=== PATIENT | male | born 1945 | race Caucasian/White ===

== ENCOUNTER 2016-09-18 16:57 | Inpatient (IN) | payer MEDICARE, OTHER ==
[~2016-09-18] VITALS: Ht 185.4 cm; Wt 107.1 kg
[2016-09-18] MEDS ORDERED: IV NORMAL SALINE 1000ML BAG 1,000 ML IV ONE (17:30)
--- NOTE | 2016-09-18 17:33 | PHYS DOC ---
Adult General Chief Complaint Chief Complaint: ABDOMINAL PAIN HPI HPI Patient is a 70 year old M who presents with right lower quadrant pain that started this morning. Patient had nausea without vomiting. Patient had subjective fevers throughout the day. Patient went to his family doctor Radha who sent him to the emergency room to rule out acute appendicitis. Patient denies any previous abdominal surgeries. Patient denies any chest pain or shortness of breath. Patient has no other complaints. Pertinent exam findings: Positive tenderness palpation right lower quadrant with rebound tenderness ED course: Patient is seen and evaluated upon arrival to emergency room CBC, CMP, lipase, CT scan abdomen and pelvis were ordered patient declined pain medicine at this time 1850: Radiology called patient has acute appendicitis 185: Patient updated on the CT findings and plan to admit and get a surgery 1899: Surgery paged 1909: Discussed CC/HP/PMH with Dr. Vanegas and recommends Levaquin and Flagyl and admitted to medicine was that they do surgery tomorrow 1913: Paged Dr. Núñez 1924: Discussed CC/HP/PMH with Dr. Núñez and recommends admit [] Pertinent results: CT scan shows acute appendicitis Labwork unremarkable white count normal MDM: After reviewing the chart, CC/HPI/PMH, physical exam, [lab results], [ radiological results], the patient has acute appendicitis and will be admitted to the hospital for surgery in the morning. Patient will be started on Levaquin and Flagyl. Review of Systems Review of Systems GEN: Denies fevers, chills, sweats HEENT: Denies blurred vision, sore throat CV: Denies chest pain RESP: Denies shortness of air, cough GI: Abdominal pain NEURO: Denies confusion, dizziness MSK: Denies weakness, joint pain/swelling Current Medications Current Medications Current Medications Medications (Trade) Dose Ordered Sig/Albert Start Time Stop Time Status Last Admin Dose Admin Iohexol (Omnipaque 300 Mg/ml) 75 ml 1X ONCE 09/18/16 17:45 09/18/16 17:46 DC 09/18/16 18:35 75 ML Levofloxacin/ Dextrose 150 ml @ 100 mls/hr 1X ONCE 09/18/16 19:30 09/18/16 20:59 Metronidazole 100 ml @ 100 mls/hr 1X ONCE 09/18/16 20:00 09/18/16 20:59 09/18/16 19:34 100 MLS/HR Sodium Chloride 1,000 ml @ 1,000 mls/hr 1X ONCE 09/18/16 17:30 09/18/16 18:29 DC 09/18/16 17:50 1,000 MLS/HR Allergies Allergies Allergies Coded Allergies Type Severity Reaction Last Updated Verified Penicillins Allergy Severe Anaphylaxis 09/18/16 Yes codeine Allergy Mild NAUSEA 09/18/16 Yes Physical Exam Physical Exam GEN.: No apparent distress. Alert and oriented. HEENT: Head is normocephalic, atraumatic NECK: Supple. LUNGS: CTAB. HEART: RRR, S1, S2 present. Peripheral pulses intact ABDOMEN: Soft, positive tenderness palpation right lower quadrant with rebound tenderness. Positive bowel sounds. EXTREMITIES: Without any cyanosis. NEUROLOGIC: Normal speech, normal tone PSYCHIATRIC: Normal affect, normal mood. SKIN: No ulcerations Current Patient Data Vital Signs Vital Signs Date Time Temp Pulse Resp B/P (MAP) Pulse Ox O2 Delivery O2 Flow Rate FiO2 09/18/16 19:15 75 16 133/79 (97) 94 Room Air 09/18/16 17:29 98.4 98.4 Lab Values Laboratory Tests Test 09/18/16 17:55 White Blood Count 9.2 x10^3/uL (4.0-11.0) Red Blood Count 5.10 x10^6/uL (4.30-5.70) Hemoglobin 15.2 g/dL (13.0-17.5) Hematocrit 46.2 % (39.0-53.0) Mean Corpuscular Volume 91 fL (79-100) Mean Corpuscular Hemoglobin 30 pg (25-35) Mean Corpuscular Hemoglobin Concent 33 g/dL (31-37) Red Cell Distribution Width 16.1 % (11.5-14.5) H Platelet Count 183 x10^3/uL (140-400) Neutrophils (%) (Auto) 67 % (31-73) Lymphocytes (%) (Auto) 21 % (24-48) L Monocytes (%) (Auto) 10 % (0-9) H Eosinophils (%) (Auto) 2 % (0-3) Basophils (%) (Auto) 0 % (0-3) Neutrophils # (Auto) 6.2 x10^3uL (1.8-7.7) Lymphocytes # (Auto) 2.0 x10^3/uL (1.0-4.8) Monocytes # (Auto) 0.9 x10^3/uL (0.0-1.1) Eosinophils # (Auto) 0.2 x10^3/uL (0.0-0.7) Basophils # (Auto) 0.0 x10^3/uL (0.0-0.2) Sodium Level 142 mmol/L (136-145) Potassium Level 4.2 mmol/L (3.5-5.1) Chloride Level 102 mmol/L (98-107) Carbon Dioxide Level 31 mmol/L (21-32) Anion Gap 9 (6-14) Blood Urea Nitrogen 14 mg/dL (8-26) Creatinine 1.3 mg/dL (0.7-1.3) Estimated GFR (Cockcroft-Gault) 54.7 BUN/Creatinine Ratio 11 (6-20) Glucose Level 113 mg/dL (70-99) H Calcium Level 9.3 mg/dL (8.5-10.1) Total Bilirubin 1.0 mg/dL (0.2-1.0) Aspartate Amino Transferase (AST) 16 U/L (15-37) Alanine Aminotransferase (ALT) 23 U/L (16-63) Alkaline Phosphatase 57 U/L (46-116) Total Protein 7.9 g/dL (6.4-8.2) Albumin 3.9 g/dL (3.4-5.0) Albumin/Globulin Ratio 1.0 (1.0-1.7) Lipase 115 U/L (73-393) Laboratory Tests 09/18/16 17:55 Laboratory Tests 09/18/16 17:55 EKG EKG [] Radiology/Procedures Radiology/Procedures CT scan shows acute appendicitis [] Course & Med Decision Making Course & Med Decision Making Pertinent Labs and Imaging studies reviewed. (See chart for details) [] Dragon Disclaimer Dragon Disclaimer This electronic medical record was generated, in whole or in part, using a voice recognition dictation system. Departure Departure Impression: Primary Impression: Appendicitis, acute Disposition: ADMITTED INPATIENT Condition: STABLE Referrals: TERRANCE AGARWAL MD (PCP) Problem Qualifiers Primary Impression: Appendicitis, acute Acute appendicitis type: with localized peritonitis Qualified Codes: K35.3 - Acute appendicitis with localized peritonitis SPIVEY,VALERIE S DO Sep 18, 2016 17:33
[2016-09-18] MEDS ORDERED: IOHEXOL 300 MG/ML 75 ML VIAL IV ONE (17:45)
[2016-09-18 18:05] LABS: BASO % 0 % (0-3); EOS % 2 % (0-3); HEMATOCRIT 46.2 % (39.0-53.0); HEMOGLOBIN 15.2 g/dL (13.0-17.5); LYMPH % 21 % (24-48); MEAN CORPUSCULAR HEMOGLOBIN 30 pg (25-35); MEAN CORPUSCULAR HGB CONC 33 g/dL (31-37); MEAN CORPUSCULAR VOLUME 91 fL (79-100); MONO % 10 % (0-9); NEUT % 67 % (31-73); PLATELET COUNT 183 x10^3/uL (140-400); RED CELL DISTRIBUTION WIDTH 16.1 % (11.5-14.5); WHITE BLOOD COUNT 9.2 x10^3/uL (4.0-11.0)
[2016-09-18 18:23] LABS: CALCIUM 9.3 mg/dL (8.5-10.1); CREATININE 1.3 mg/dL (0.7-1.3); GFR 54.7; POTASSIUM 4.2 mmol/L (3.5-5.1)
[2016-09-18 18:27] LABS: ALBUMIN 3.9 g/dL (3.4-5.0); TOTAL PROTEIN 7.9 g/dL (6.4-8.2)
--- NOTE | 2016-09-18 19:01 | RAD ---
Exam performed: CT scan of the abdomen and pelvis with contrast Clinical Indication: Severe right lower pain since this morning Date of Service: 09/18/2016 no priors Technique: Contiguous helical acquisitions are obtained from the lung bases to the pelvis during intravenous administration of [60 cc of Omnipaque 300]. Sagittal and coronal reformatted images were obtained and reviewed. CT abdomen findings: Appendix is enlarged and measures 12.6 mm with adjacent inflammatory changes consistent with acute appendicitis. No microperforation or abscess formation is seen. The lung bases demonstrate linear bibasilar atelectasis. The visualized heart is normal The liver, spleen ,gall bladder and pancreas appears unremarkable. Both adrenal glands and bilateral kidneys appear normal with symmetric excretion of contrast via both kidneys. Several nonobstructing bilateral renal calculi are seen. Small approximately 1 cm left inferior renal pole cyst The small bowel loops appear nondilated and unremarkable. There is no retroperitoneal lymphadenopathy or mass lesions. No bowel related inflammatory stranding is noted. CT pelvis findings: The pelvic bowel loops are nondilated and unremarkable. Sigmoid diverticulosis without acute diverticulitis. Prostatomegaly. Seminal vesicles and rectum appear normal. The urinary bladder is partially decompressed, however normal. Interrogation of bone windows demonstrates spondylotic changes and multilevel disc degenerative changes. Sagittal and coronal reformatted images were obtained and reviewed which demonstrate no additional findings. Impression abdomen and pelvis : 1. Findings consistent with acute appendicitis. No microperforation or abscess formation seen. 2. Nonobstructing bilateral renal calculi. The critical results were given to Dr. Licona in the ER soon after completion of the study at 6:45 PM PQRS Compliance Statement: One or more of the following individualized dose reduction techniques were utilized for this examination: 1. Automated exposure control 2. Adjustment of the mA and/or kV according to patient size 3. Use of iterative reconstruction technique Electronically signed by: Doreen Eisenberg MD (09/18/2016 6:57 PM)
[2016-09-18] MEDS ORDERED: ONDANSETRON PF 4 MG/2 ML VIAL. IV PRN (19:45)
[2016-09-18] MEDS ORDERED: MORPHINE SULFATE 4 MG/ML DISP.SYRIN. IV PRN (19:45)
[2016-09-18 21:00] VITALS: BP 129/63
[2016-09-18] MEDS: IV NORMAL SALINE 1000ML BAG 1,000 ML IV SCH (21:00)
[2016-09-18 23:13] VITALS: BP 129/63
[2016-09-19] VITALS (8 sets, daily range): BP systolic 106–126; BP diastolic 52–64
[2016-09-19 04:02] LABS: BASO # 0.1 x10^3/uL (0.0-0.2); BASO % 1 % (0-3); EOS % 3 % (0-3); HEMATOCRIT 43.2 % (39.0-53.0); HEMOGLOBIN 14.3 g/dL (13.0-17.5); LYMPH # 1.7 x10^3/uL (1.0-4.8); LYMPH % 24 % (24-48); MEAN CORPUSCULAR HEMOGLOBIN 30 pg (25-35); MEAN CORPUSCULAR HGB CONC 33 g/dL (31-37); MEAN CORPUSCULAR VOLUME 90 fL (79-100); MONO % 12 % (0-9); NEUT % 61 % (31-73); PLATELET COUNT 175 x10^3/uL (140-400); RED BLOOD COUNT 4.78 x10^6/uL (4.30-5.70); RED CELL DISTRIBUTION WIDTH 15.7 % (11.5-14.5); WHITE BLOOD COUNT 7.1 x10^3/uL (4.0-11.0)
[2016-09-19 04:15] LABS: CALCIUM 8.8 mg/dL (8.5-10.1); CREATININE 1.2 mg/dL (0.7-1.3)
[2016-09-19] MEDS: IV RINGERS,LACTATED 1000ML 1,000 ML IV SCH ×2 (06:05→10:37)
[2016-09-19] MEDS ORDERED: PROCHLORPERAZINE 10 MG/2 ML VIAL. IV PRN (06:15)
[2016-09-19] MEDS ORDERED: LIDOCAINE 1% 1 ML SYRINGE. ID PRN (06:15)
[2016-09-19] MEDS ORDERED: fentaNYL PF VIAL 100 MCG/2 ML VIAL IV PRN ×2 (06:15)
[2016-09-19] MEDS ORDERED: ONDANSETRON PF 4 MG/2 ML VIAL. IV PRN (06:15)
[2016-09-19] MEDS: IV NORMAL SALINE 1000ML BAG 1,000 ML IV SCH ×3 (06:27→12:30)
[2016-09-19] MEDS ORDERED: LEVO112T4 PO (07:12)
[2016-09-19] MEDS ORDERED: MONT10TA9 PO (07:12)
[2016-09-19] MEDS ORDERED: TAMS0.4C2 PO (07:12)
[2016-09-19] MEDS ORDERED: TIOT18CA IH (07:12)
[2016-09-19] MEDS ORDERED: HYDR12.58 PO (07:12)
[2016-09-19] MEDS ORDERED: PROVENTIL HFA6.7 GM IH (07:12)
[2016-09-19] MEDS ORDERED: LISI-334 PO (07:12)
[2016-09-19] MEDS ORDERED: MIDAZOLAM HCL/PF 2 MG/2 ML VIAL. ONE (09:44)
[2016-09-19] MEDS ORDERED: ONDANSETRON PF 4 MG/2 ML VIAL. ONE (09:44)
[2016-09-19] MEDS ORDERED: LIDOCAINE 2% PF Vial for OR 5 ML VIAL. ONE (09:44)
[2016-09-19] MEDS ORDERED: fentaNYL PF VIAL 100 MCG/2 ML VIAL ONE (09:44)
[2016-09-19] MEDS ORDERED: DEXAMETHASONE SOD PHOS 20 MG/5 ML VIAL. ONE (09:44)
[2016-09-19] MEDS ORDERED: ROCURONIUM 50 MG/5 ML VIAL. ONE (09:44)
[2016-09-19] MEDS ORDERED: PROPOFOL 20 ML IV ONE ×2 (09:44→11:49)
--- NOTE | 2016-09-19 10:26 | PDOC ---
Provider Note Provider Note #[id number]--wrlriie dictated ANDREW VILLALTA MD Sep 19, 2016 10:26
[2016-09-19] MEDS ORDERED: BUPIVAC MPF-EPI 0.5%-1:200000 30 ML VIAL. ONE (10:38)
[2016-09-19] MEDS ORDERED: SURGICEL HEMOSTAT 4X8 EACH. ONE (10:38)
[2016-09-19] MEDS ORDERED: SEVOFLURANE 61 TO 120 MINUTES. IH ONE (11:50)
--- NOTE | 2016-09-19 11:55 | PDOC ---
BRIEF OPERATIVE NOTE Pre-Op Diagnosis #[id number] appendicitis lap appy geta ebl 25 ivf 600 sari well to rr stable. d/w post op regarding his abrupt sliding/position change intra- operatively. anesthesia to monitor pt post op in rr. ANDREW VILLALTA MD Sep 19, 2016 11:55
--- NOTE | 2016-09-19 12:22 | HP ---
ADMIT DATE: 09/18/2016 CHIEF COMPLAINT: Abdominal pain. HISTORY OF PRESENT ILLNESS: The patient is a pleasant 70-year-old male who presents with abdominal pain. We did a CAT scan, he has appendicitis. He rates his symptoms at 7/10. He has associated nausea. The patient has now been admitted. We are awaiting surgery today. PAST MEDICAL HISTORY: Asthma, hypothyroidism, hypertension, BPH, and possible COPD. ALLERGIES: PENICILLIN AND CODEINE. FAMILY HISTORY: Coronary artery disease. SOCIAL HISTORY: I believe he quit smoking, no drinking or drugs use. He is . MEDICATIONS: Reviewed, please refer to the MRAD. REVIEW OF SYSTEMS: GENERAL: No history of weight change, weakness or fevers. SKIN: No bruising, hair changes or rashes. EYES: No blurred, double or loss of vision. NOSE AND THROAT: No history of nosebleeds, hoarseness or sore throat. HEART: No history of palpitations, chest pain or shortness of breath on exertion. LUNGS: Denies cough, hemoptysis, wheezing or shortness of breath. GASTROINTESTINAL: He complains of abdominal pain. GENITOURINARY: No history of frequency, urgency, hesitancy or nocturia. NEUROLOGIC: Denies history of numbness, tingling, tremor or weakness. PSYCHIATRIC: No history of panic, anxiety or depression. ENDOCRINE: No history of heat or cold intolerance, polyuria or polydipsia. EXTREMITIES: Denies muscle weakness, joint pain, pain on walking or stiffness. PHYSICAL EXAMINATION: VITAL SIGNS: Temperature afebrile, pulse 70, respirations 18, blood pressure 133/78. GENERAL: He is alert, cooperative, complaining of abdominal pain. HEART: Normal S1, S2. LUNGS: Clear. ABDOMEN: Soft. Decreased bowel sounds, tender at McBurney's point. ENDOCRINE: No thyromegaly. LYMPHATICS: No cervical nodes. HEMATOPOIETIC: No bruising. LABORATORY DATA: White count 9, hemoglobin 15, and platelets 183. Electrolytes were essentially normal. IMAGING: CT of the abdomen shown probable appendicitis. ASSESSMENT AND PLAN: Acute appendicitis. The patient has been admitted, given IV antibiotics, fluids and pain medications. We have consulted General Surgery. He is going to surgery this afternoon. RAVI MEZA DO DR: DARCY/dimas JOB#: [id number] / [id number]
--- NOTE | 2016-09-19 12:59 | OP ---
DATE OF SURGERY: 09/19/2016 PREOPERATIVE DIAGNOSIS: Acute appendicitis. POSTOPERATIVE DIAGNOSIS: Acute appendicitis. PROCEDURE: Laparoscopic appendectomy. SURGEON: Andrew Villalta M.D. ANESTHESIA: General. ESTIMATED BLOOD LOSS: 25 mL. IV FLUIDS: 600 mL. INDICATIONS: The patient is a 70-year-old male who presents with acute appendicitis. He had nonperforated and nongangrenous appendicitis. DESCRIPTION OF PROCEDURE: After informed consent was obtained, the patient was taken to the operating room and placed in supine position. After adequate induction of general anesthesia, he was prepped and draped in usual sterile fashion. An umbilical skin incision was made with a scalpel, subcutaneous tissues with a hemostat. [facility] was used to grab the fascia and lift it anteriorly. Veress was used to gain access to the peritoneal cavity. Low opening pressures confirmed intraperitoneal placement of Veress. Pneumoperitoneum to 15 mmHg was established followed by placement of 5 mm port. A 5 mm 30 degree lens was inserted, which revealed good port placement. No evidence of entry trauma. He was placed head down and rotated towards his left. Two additional ports were placed under direct vision, one was a 5 mm suprapubic port and one was 12 mm left lower quadrant port. The appendix is visible in the right lower quadrant. It was acutely inflamed. A window was made at the base of appendix with a [place] dissector. Laparoscopic ABI blue load stapler was used to divide the base of the appendix. Laparoscopic ABI white load stapler was placed on the mesoappendix at which point the patient abruptly slid to his left, so that his torso came off of the table as did his head. However, he did not make contact with the floor. Airway was maintained and the patient was returned to the table. He was not in any significant amount or unusual amount of head down or rotation at the time that he slid, but after returning him to the table, he was placed in less Trendelenburg and less rotation to his left. At which point, laparoscopic vision was reestablished, which revealed no intra-abdominal abnormality other than a little bit of shearing of the mesentery and the retroperitoneal tissues along the mesoappendix. At this point, the mesoappendix was regrasped with the stapler. Then, the stapler was fired thereby freeing the appendix. There was no bleeding related to his sliding from the table. There was a little bit of expected bleeding from the mesoappendiceal staple line. The appendix was placed in laparoscopic bag and brought out through the left lower quadrant incision. The staple line was easily made hemostatic with application of a clip booth operator. Right lower quadrant was irrigated. Irrigant returned clear. The staple lines appeared healthy and hemostatic. The cecum and terminal ileum were unremarkable. The right upper quadrant and pelvis were irrigated. Irrigant returned clear. One final look at the right lower quadrant revealed it to continue to be hemostatic. Fascial closure device was used to close the fascia at the left lower quadrant incision using 0 Vicryl suture under direct laparoscopic vision. The area was hemostatic. The ports were removed under direct vision. They were hemostatic. Pneumoperitoneum was desufflated. Skin incisions were closed with 4-0 Monocryl in subcuticular fashion. Sterile dressings were placed. He tolerated the procedure well. There were no apparent complications. He is in the process of being transferred in stable condition to the recovery room. Also, of note, his incision sites were all injected with local before creating the incision and placing port. ANDREW VILLALTA MD DR: CORTES/dimas JOB#: [id number] / [id number] TERRANCE Black MD [facility]
[2016-09-19] MEDS ORDERED: POLYETHYLENE GLYCOL 3350 17 GM PACKET. PO PRN (13:15)
[2016-09-19] MEDS: oxyCODONE/APAP 5/325 1 TAB TABLET PO PRN (18:48)
[2016-09-19] MEDS ORDERED: NON FORMULARY ITEM (Albuterol Sulfate (Proventil Hfa Inhaler) 1 PUFF) IH PRN (22:00)
[2016-09-19] MEDS ORDERED: ALBUTEROL SULFATE 2.5 MG/3 ML NEBU. NEB PRN (22:00)
[2016-09-20] MEDS: oxyCODONE/APAP 5/325 1 TAB TABLET PO PRN ×2 (01:22→06:02)
[2016-09-20] MEDS: IV NORMAL SALINE 1000ML BAG 1,000 ML IV SCH ×2 (01:50→06:02)
--- NOTE | 2016-09-20 01:58 | CONS ---
DATE OF CONSULTATION: 09/19/2016 CHIEF COMPLAINT: Abdominal pain. HISTORY OF PRESENT ILLNESS: The patient is a very pleasant 70-year-old male who yesterday noted right lower quadrant pain. It is of moderate in intensity. It is constant. It is worse if he is move his right leg or swings his right leg or to get out of bed. It is not associated with nausea, vomiting. It is associated with loss of appetite. It is not improving. PAST MEDICAL HISTORY: 1. Hypertension. 2. COPD. 3. Hypothyroidism. PAST SURGICAL HISTORY: He has had knee and shoulder surgery, no prior intraabdominal surgery. HOME MEDICATIONS: Include: 1. Albuterol. 2. Hydrochlorothiazide. 3. Levothyroxine. 4. Lisinopril. 5. Montelukast. 6. Tamsulosin. 7. Spiriva. ALLERGIES: 1. PENICILLIN. 2. CODEINE. (HE SAYS HE CAN TOLERATE OXYCODONE) CODEINE GIVES SOME NAUSEA, VOMITING. SOCIAL HISTORY: He is a former smoker. He stopped in April 2016. He is . He is retired from working at the [employer]. FAMILY HISTORY: Noncontributory to this illness. REVIEW OF SYSTEMS: CONSTITUTIONAL: No fevers or chills. EYES: No abrupt loss of vision or double vision. EARS, NOSE, MOUTH, AND THROAT: No loss of hearing or ringing in his ears. CARDIOVASCULAR: Denies chest pain or heart palpitations. RESPIRATORY: Denies cough and shortness of breath and I discussed this COPD he says he does not get routine cough or shortness of breath. He says he can walk up a flight of stairs without difficulty. He does mow his lawn. GASTROINTESTINAL: See HPI. GENITOURINARY: No dysuria or hematuria. HEMATOLOGIC: No easy bleeding or bruising. MUSCULOSKELETAL: He does have some myalgias and arthralgias, arthritis in his hands, but nothing new. DERMATOLOGIC: No new skin rashes or lesions. PSYCHIATRIC: Denies depression. He does have some anxiety. NEUROLOGIC: No headaches or seizures. ENDOCRINE: No polyuria or polydipsia. PHYSICAL EXAMINATION: VITAL SIGNS: His temperature is 99.3, pulse is 69, respiratory rate 18, blood pressure 106/60, O2 sats 93-95% on room air. GENERAL: Well-developed, well-nourished male in no acute distress. BMI is 31. HEENT: Eyes are pupils are round and reactive. Sclerae are nonicteric. Head is atraumatic. Mucous membranes are somewhat dry. Face symmetric. NECK: Supple without cervical lymphadenopathy, no supraclavicular lymphadenopathy. Neck is nontender without masses. CARDIOVASCULAR: Palpation of his right radial pulse reveals his right radial pulse to be 2+. No pedal edema and regular rate by palpation. RESPIRATORY: Respirations are nonlabored. CHEST WALL: Nontender to palpation. ABDOMEN: Soft, nondistended. He is focally tender in the right lower quadrant with mild rebound, no guarding. No Rovsing sign. DERMATOLOGIC: Exposed portions of skin are without rashes or lesions. MUSCULOSKELETAL: He has no obvious joint deformities other than some mild swelling of the knuckles on his hands. He has equal assembler strength bilaterally. PSYCHIATRIC: He is cooperative with appropriate mood and affect. NEUROLOGIC: He has no resting tremor. He can move all 4 extremities without difficulty. IMAGING: CT scan reviewed, the imaging as well as the report. LABORATORY DATA: Reviewed. ASSESSMENT: 1. Acute appendicitis. 2. Hypertension. 3. Chronic obstructive pulmonary disease/chronic respiratory failure. 4. Mild obesity with a BMI of 31. PLAN: The patient is being taken to the operating room this morning for laparoscopic appendectomy, possible open. Risk of bleeding, infection, need to convert to open, injury to intra-abdominal structures and unlikely. Risk of heart attack, stroke, DVT, PE, pneumonia, and were discussed with the patient and his . Questions were answered. He desires to proceed with the procedure. ANDREW VILLALTA MD DR: CORTES/dimas JOB#: [id number] / [id number] TERRANCE Black MD [facility]
[2016-09-20 03:03] VITALS: BP 118/60
[2016-09-20 07:00] VITALS: BP 110/69
[2016-09-20] MEDS ORDERED: LEVOTHYROXINE 112 MCG TABLET PO SCH (07:00)
[2016-09-20] MEDS: IPRATRPIUM/ALBUTEROL 0.5/2.5MG 3 ML NEBU. NEB SCH ×2 (08:31→12:14)
[2016-09-20] MEDS ORDERED: TAMSULOSIN 0.4 MG CAP.ER.24H. PO SCH (09:00)
[2016-09-20] MEDS ORDERED: MONTELUKAST SODIUM 10 MG TABLET. PO SCH (09:00)
[2016-09-20] MEDS ORDERED: LISINOPRIL 20 MG TABLET PO SCH (09:00)
[2016-09-20] MEDS ORDERED: hydroCHLOROthiazide 25 MG TABLET PO SCH (09:00)
[2016-09-20] MEDS ORDERED: NON FORMULARY ITEM (Tiotropium Bromide (Spiriva) 2 INH) IH SCH (09:00)
--- NOTE | 2016-09-20 09:26 | PDOC ---
SURGICAL PROGRESS NOTE Subjective tolerating diet incisional and LLQ pain no nausea urinating + flatus Vital Signs Vital Signs Date Time Temp Pulse Resp B/P (MAP) Pulse Ox O2 Delivery O2 Flow Rate FiO2 09/20/16 08:37 76 110/69 09/20/16 08:35 96 Room Air 09/20/16 07:00 97.9 18 97.9 09/19/16 14:10 2.0 I&O Intake and Output 09/20/16 07:00 Intake Total 2125 ml Output Total 1535 ml Balance 590 ml Intake Oral 1125 ml IV Total 1000 ml Output Urine Total 1535 ml # Voids 27 General: Alert, Oriented X3, Cooperative, No acute distress Abdomen: Soft, Other (lap dressings dry, incisional TTP) Labs Laboratory Tests Test 09/18/16 17:55 09/19/16 02:25 White Blood Count 9.2 x10^3/uL (4.0-11.0) 7.1 x10^3/uL (4.0-11.0) Red Blood Count 5.10 x10^6/uL (4.30-5.70) 4.78 x10^6/uL (4.30-5.70) Hemoglobin 15.2 g/dL (13.0-17.5) 14.3 g/dL (13.0-17.5) Hematocrit 46.2 % (39.0-53.0) 43.2 % (39.0-53.0) Mean Corpuscular Volume 91 fL (79-100) 90 fL (79-100) Mean Corpuscular Hemoglobin 30 pg (25-35) 30 pg (25-35) Mean Corpuscular Hemoglobin Concent 33 g/dL (31-37) 33 g/dL (31-37) Red Cell Distribution Width 16.1 % (11.5-14.5) 15.7 % (11.5-14.5) Platelet Count 183 x10^3/uL (140-400) 175 x10^3/uL (140-400) Neutrophils (%) (Auto) 67 % (31-73) 61 % (31-73) Lymphocytes (%) (Auto) 21 % (24-48) 24 % (24-48) Monocytes (%) (Auto) 10 % (0-9) 12 % (0-9) Eosinophils (%) (Auto) 2 % (0-3) 3 % (0-3) Basophils (%) (Auto) 0 % (0-3) 1 % (0-3) Neutrophils # (Auto) 6.2 x10^3uL (1.8-7.7) 4.3 x10^3uL (1.8-7.7) Lymphocytes # (Auto) 2.0 x10^3/uL (1.0-4.8) 1.7 x10^3/uL (1.0-4.8) Monocytes # (Auto) 0.9 x10^3/uL (0.0-1.1) 0.8 x10^3/uL (0.0-1.1) Eosinophils # (Auto) 0.2 x10^3/uL (0.0-0.7) 0.2 x10^3/uL (0.0-0.7) Basophils # (Auto) 0.0 x10^3/uL (0.0-0.2) 0.1 x10^3/uL (0.0-0.2) Sodium Level 142 mmol/L (136-145) 143 mmol/L (136-145) Potassium Level 4.2 mmol/L (3.5-5.1) 4.0 mmol/L (3.5-5.1) Chloride Level 102 mmol/L (98-107) 105 mmol/L (98-107) Carbon Dioxide Level 31 mmol/L (21-32) 29 mmol/L (21-32) Anion Gap 9 (6-14) 9 (6-14) Blood Urea Nitrogen 14 mg/dL (8-26) 12 mg/dL (8-26) Creatinine 1.3 mg/dL (0.7-1.3) 1.2 mg/dL (0.7-1.3) Estimated GFR (Cockcroft-Gault) 54.7 60.0 BUN/Creatinine Ratio 11 (6-20) Glucose Level 113 mg/dL (70-99) 103 mg/dL (70-99) Calcium Level 9.3 mg/dL (8.5-10.1) 8.8 mg/dL (8.5-10.1) Total Bilirubin 1.0 mg/dL (0.2-1.0) Aspartate Amino Transf (AST/SGOT) 16 U/L (15-37) Alanine Aminotransferase (ALT/SGPT) 23 U/L (16-63) Alkaline Phosphatase 57 U/L (46-116) Total Protein 7.9 g/dL (6.4-8.2) Albumin 3.9 g/dL (3.4-5.0) Albumin/Globulin Ratio 1.0 (1.0-1.7) Lipase 115 U/L (73-393) Problem List Problems Medical Problems: (1) Appendicitis, acute Status: Acute Assessment/Plan s/p lap appy ok to ne home FU 2 weeks Problems: ANTONI ARIZA APRN Sep 20, 2016 09:26
[2016-09-20 11:00] VITALS: BP 114/61
--- NOTE | 2016-09-20 23:57 | DS ---
DATE OF DISCHARGE: 09/20/2016 ADMISSION DIAGNOSIS: Appendicitis. DISCHARGE DIAGNOSIS: Postop laparoscopic appendectomy. HOSPITAL COURSE: The patient is a pleasant 70-year-old male who presented with acute appendicitis. He was admitted. We consulted General Surgery. He was taken for a laparoscopic appendectomy by Dr. Santillan. Postoperatively he is doing well. This morning I saw and examined him. He is doing great. We plan to discharge. DISPOSITION: Home. ACTIVITY: As tolerated. DIET: Low sodium. MEDICATIONS: Please see the MRAD. TOTAL TIME: 32 minutes. RAVI MEZA DO DR: DARCY/dimas JOB#: [id number] / [id number]
--- NOTE | 2016-09-21 06:36 | PN ---
DATE: 09/20/2016 SUBJECTIVE: The patient was seen and examined this morning. OBJECTIVE: HEART: Regular rate and rhythm. LUNGS: Clear. ABDOMEN: Soft, positive bowel sounds. Clean bandaging. EXTREMITIES: No edema. SKIN: No rashes. PLAN: We will go and discharge. Please see the dictated discharge summary. RAVI MEZA DO DR: DARCY/dimas JOB#: [id number] / [id number]
--- NOTE | 2016-09-23 16:38 | PATHOLOGY ---
PATHOLOGY REPORT * * * * * * * * FINAL DIAGNOSIS: Appendix, laparoscopic appendectomy: - Acute appendicitis. COMMENT: There is no evidence of rupture. There is no evidence of malignancy. (JPM:csd; d/t: 09/23/2016) REPORT ELECTRONICALLY SIGNED BY: Jacob Marsh M.D. DATE/TIME: 09/23/2016 16:38 * * * * * * * * GROSS PATHOLOGY: Received in formalin labeled "Romi Candelario, damien," is an appendix measuring 5.6 cm in length and 1.5 cm in diameter with a moderate amount of attached mesoappendix. The serosal surface is light rowan and vascularized. Sectioning reveals a patent to dilated lumen filled with light rowan friable material. Slipcover Cutter sections are submitted as follows: A1 proximal margin and bisected tip A2 additional veterans contact representative cross-sections of appendix. (KAH; 09/20/2016) INITIAL CPT CODE(S): A; 20689 Professional services performed [place] [facility] [place] [address] Technical services performed by [employer] at [address] [place] [address]. SPECIMEN(S) RECEIVED: A.Appendix CLINICAL HISTORY: Right lower quadrant pain, acute appendicitis PATIENT: ROMI CANDELARIO /AGE: [id number] 1945 (Age: 70) PATIENT #: [id number] ALT CASE #: SPECIMEN COLLECTION DATE: 09/19/2016 SPECIMEN RECEIVED DATE: 09/19/2016 [facility] - [address] [place] [address] - PHONE: [phone] * * * END OF REPORT * * *
== END 2016-09-20 14:00 | disposition home or self-care (01) | DRG 342 ==
LOC: ER 16:57 → 6 SOUTH 19:12
PROVIDERS: ADMIT Internal Medicine; ATTEND Internal Medicine
PROC: 0DTJ4ZZ Resection of Appendix, Percutaneous Endoscopic Approach (ICD-10-PCS; principal; 2016-09-19 11:00)
DX: K35.80 Unspecified acute appendicitis (principal); J96.10 Chronic respiratory failure, unspecified whether with hypoxia or hypercapnia; E66.9 Obesity, unspecified; J44.9 Chronic obstructive pulmonary disease, unspecified; K66.8 Other specified disorders of peritoneum; I10 Essential (primary) hypertension; N40.0 Benign prostatic hyperplasia without lower urinary tract symptoms; E03.9 Hypothyroidism, unspecified; Z87.891 Personal history of nicotine dependence; Z82.49 Family history of ischemic heart disease and other diseases of the circulatory system; Z88.0 Allergy status to penicillin; Z88.5 Allergy status to narcotic agent; Z79.899 Other long term (current) drug therapy; Z68.31 Body mass index [BMI] 31.0-31.9, adult
CPT/HCPCS: 36415; 74177; 80048; 80053; 83690; 85027; 88304; 94250; 94640; 94760; 96361; 96365; C1782; J0780; J1100; J1956; J2250; J2405; J2704; J3010; J3490; J7030; J7120; J7620; Q9967; 99285-25

== ENCOUNTER 2020-08-23 13:03 | Emergency (ER) | payer MEDICARE, OTHER ==
[~2020-08-23] VITALS: Ht 188 cm; Wt 107.3 kg
[~2020-08-23 13:03] MED LIST: HYDR12.58 PO; LEVO112T49 PO; LISI20TA18 PO; MONT10TA49 PO; PROVENTIL HFA6.7 GM IH; TAMS0.4C2 PO; TIOT18CA IH
--- NOTE | 2020-08-23 13:54 | PHYS DOC ---
Past Medical History Past Medical History: Asthma, COPD, High Cholesterol, Hypertension, Hypothyroid Additional Past Medical Histor: LOW TESTOSTERONE Past Surgical History: Other Additional Past Surgical Histo: BILATER EYE (07/31/20 AND 08/14/20) Smoking Status: Former Smoker Alcohol Use: Rarely Drug Use: None General Adult EDM: Chief Complaint: FLANK PAIN HPI: HPI: Patient is a 74 year old male who presented to ER due to right-sided flank pain started 2 hours ago. Patient has history of kidney stone, he feels like this is not his kidney stone attack. Patient denies any cough, no fever, no chest pain, no nausea vomiting. Patient denies any urinary frequency or urgency. Review of Systems: Review of Systems: Constitutional: Denies fever or chills. [] Eyes: Denies change in visual acuity. [] HENT: Denies nasal congestion or sore throat. [] Respiratory: Denies cough or shortness of breath. [] Cardiovascular: Denies chest pain or edema. [] GI: Positive for right-sided flank pain, no nausea vomiting, no diarrhea. : Denies dysuria. [] Musculoskeletal: Denies back pain or joint pain. [] Integument: Denies rash. [] Neurologic: Denies headache, focal weakness or sensory changes. [] Endocrine: Denies polyuria or polydipsia. [] Lymphatic: Denies swollen glands. [] Psychiatric: Denies depression or anxiety. [] Heart Score: C/O Chest Pain: N/A Risk Factors: Risk Factors: DM, Current or recent (<one month) smoker, HTN, HLP, family history of CAD, obesity. Risk Scores: Score 0 - 3: 2.5% MACE over next 6 weeks - Discharge Home Score 4 - 6: 20.3% MACE over next 6 weeks - Admit for Clinical Observation Score 7 - 10: 72.7% MACE over next 6 weeks - Early Invasive Strategies Allergies: Allergies: Allergies Coded Allergies Type Severity Reaction Last Updated Verified Penicillins Allergy Severe Anaphylaxis 09/19/16 Yes codeine Allergy Mild NAUSEA 09/19/16 Yes Physical Exam: PE: Constitutional: Well developed, well nourished, no acute distress, non-toxic appearance. [] HENT: Normocephalic, atraumatic, bilateral external ears normal, oropharynx moist, no oral exudates, nose normal. [] Eyes: PERRLA, EOMI, conjunctiva normal, no discharge. [] Neck: Normal range of motion, no tenderness, supple, no stridor. [] Cardiovascular:Heart rate regular rhythm, no murmur [] Lungs & Thorax: Bilateral breath sounds clear to auscultation [] Abdomen: Bowel sounds normal, soft, no tenderness, no masses, no pulsatile ma sses. [] Skin: Warm, dry, no erythema, no rash. [] Back: No tenderness, right CVA tenderness to palpation . Extremities: No tenderness, no cyanosis, no clubbing, ROM intact, no edema. [] Neurologic: Alert and oriented X 3, normal motor function, normal sensory function, no focal deficits noted. [] Psychologic: Affect normal, judgement normal, mood normal. [] Current Patient Data: Labs: Laboratory Tests Test 08/23/20 13:50 08/23/20 13:55 Urine Collection Type Unknown Urine Color Yellow Urine Clarity Clear Urine pH 5.0 Urine Specific [place] 1.020 Urine Protein Negative mg/dL Urine Glucose (UA) Negative mg/dL Urine Ketones (Stick) Negative mg/dL Urine Blood Large Urine Nitrite Negative Urine Bilirubin Negative Urine Urobilinogen Dipstick 0.2 mg/dL Urine Leukocyte Esterase Negative Urine RBC >40 /HPF Urine WBC 1-4 /HPF Urine Squamous Epithelial Cells Few /LPF Urine Bacteria Few /HPF Urine Hyaline Casts Moderate /HPF Urine Mucus Marked /LPF White Blood Count 8.9 x10^3/uL Red Blood Count 4.82 x10^6/uL Hemoglobin 14.1 g/dL Hematocrit 41.9 % Mean Corpuscular Volume 87 fL Mean Corpuscular Hemoglobin 29 pg Mean Corpuscular Hemoglobin Concent 34 g/dL Red Cell Distribution Width 14.2 % Platelet Count 188 x10^3/uL Neutrophils (%) (Auto) 74 % Lymphocytes (%) (Auto) 17 % Monocytes (%) (Auto) 7 % Eosinophils (%) (Auto) 1 % Basophils (%) (Auto) 1 % Neutrophils # (Auto) 6.6 x10^3/uL Lymphocytes # (Auto) 1.6 x10^3/uL Monocytes # (Auto) 0.6 x10^3/uL Eosinophils # (Auto) 0.1 x10^3/uL Basophils # (Auto) 0.1 x10^3/uL Sodium Level 144 mmol/L Potassium Level 4.2 mmol/L Chloride Level 105 mmol/L Carbon Dioxide Level 26 mmol/L Anion Gap 13 Blood Urea Nitrogen 17 mg/dL Creatinine 1.3 mg/dL Estimated GFR (Cockcroft-Gault) 54.1 BUN/Creatinine Ratio 13 Glucose Level 140 mg/dL Calcium Level 9.3 mg/dL Magnesium Level 1.7 mg/dL Total Bilirubin 0.4 mg/dL Aspartate Amino Transf (AST/SGOT) 17 U/L Alanine Aminotransferase (ALT/SGPT) 31 U/L Alkaline Phosphatase 60 U/L Total Protein 7.0 g/dL Albumin 4.0 g/dL Albumin/Globulin Ratio 1.3 Lipase 90 U/L Current Medications Medications (Trade) Dose Ordered Sig/Albert Route PRN Reason Start Time Stop Time Status Last Admin Dose Admin Morphine Sulfate (Morphine Sulfate) 4 mg 1X ONCE IV 08/23/20 14:00 08/23/20 14:01 DC 08/23/20 14:04 Ondansetron HCl (Zofran) 4 mg 1X ONCE IVP 08/23/20 14:00 08/23/20 14:01 DC 08/23/20 14:04 Ketorolac Tromethamine (Toradol 30mg Vial) 30 mg STK-MED ONCE .ROUTE 08/23/20 14:47 08/23/20 14:47 DC Ketorolac Tromethamine (Toradol 30mg Vial) 30 mg 1X ONCE IVP 08/23/20 15:00 08/23/20 15:01 DC 08/23/20 14:52 Sodium Chloride 1,000 ml @ 1,000 mls/hr 1X ONCE IV 08/23/20 15:00 08/23/20 15:59 08/23/20 14:57 Vital Signs: Vital Signs Date Time Temp Pulse Resp B/P (MAP) Pulse Ox O2 Delivery O2 Flow Rate FiO2 08/23/20 13:15 97.8 83 16 135/73 (93) 96 Room Air 97.8 EKG: EKG: [] Radiology/Procedures: Radiology/Procedures: [][facility] [address] [place], [place] [id number] IMAGING REPORT Signed PATIENT: ROMI CANDELARIO ACCOUNT: [id number] : 1945 LOCATION: ER AGE: 74 SEX: M EXAM STATUS: REG ER ORD. PHYSICIAN: LISA NARANJO DO REASON: RIGHT SIDE FLANK PAIN PROCEDURE: CT ABDOMEN PELVIS WO CONTRAST CT STUDY OF THE ABDOMEN AND PELVIS WITHOUT CONTRAST CLINICAL INDICATIONS: Right-sided flank pain. History of renal stones. TECHNIQUE: Noncontrast helical CT scanning of the abdomen and pelvis was performed. Without contrast, the sensitivity to detect organ pathology and GI tract pathology is decreased. PQRS compliance Statement One or more of the following individualized dose reduction techniques were utilized for this study: 1. Automated exposure control 2. Adjustment of the mA and/or kV according to patient size 3. Use of iterative reconstruction technique COMPARISON: September 18, 2016. FINDINGS: The liver and spleen and pancreas are unremarkable on this noncontrast study. The gallbladder is normal. No extrahepatic biliary ductal dilatation is seen. No adrenal mass is evident. Anterior mid aspect left renal cyst is seen measuring 14 Hounsfield units and measuring 2 cm in size. This is an incidental finding and no further follow-up is needed. This cyst measured 1.5 cm previously. Bilateral renal stones are seen. There is moderate right-sided hydronephrosis and hydroureter down to the level of the right acetabulum. Obstruction is due to a 5 mm stone located 4 cm proximal to the UVJ. The urinary bladder is not distended. Prostate gland is enlarged measuring 6.4 cm transversely and does indent the floor of the urinary bladder. No focal aneurysmal dilatation of the abdominal aorta is seen. No enlarged abdominal or pelvic lymphadenopathy is seen. Colonic diverticulosis is seen without diverticulitis. Terminal ileum is unremarkable. Postsurgical changes related to an appendectomy are evident. No obstructive bowel pattern is seen. No free air or free fluid or mesenteric edema is seen. No lung base consolidation is evident. No lytic process is seen. IMPRESSION: Moderate right-sided hydronephrosis and hydroureter due to a distal right ureteral stone measuring 5 mm in size located 4 cm proximal to the UVJ. Multiple bilateral renal stones are evident. Enlargement of the prostate gland. Colonic diverticulosis without diverticulitis. Electronically signed by: Jared Rowan MD (08/23/2020 2:54 PM) [id number] DICTATED and SIGNED BY: JARED ROWAN MD DATE: 08/23/20 [id number] 0 Course & Med Decision Making: Course & Med Decision Making Pertinent Labs and Imaging studies reviewed. (See chart for details) Patient is a 73-year-old male who presented to ER due to right-sided flank pain, CT scan his abdomen pelvis showing 5 mm stone on the right side about 4 cm proximal to the UVJ junction, there is evidence of hydronephrosis and hydroureter. Patient was able to make in urine, kidney function normal. Patient was given pain medication in ER, he feel much better. Patient had a urologist, he was instructed to call his urologist for follow-up. Patient will be discharged home with pain medication, he will need to follow-up with urology this week for further evaluation and treatment. Patient is amenable to plan of care. Patient tolerated PO in the emergency department and was able to ambulate witho ut assistance. No evidence suggesting pyelonephritis , no acute kidney injury present or significant hydronephrosis. Pain controlled at this time. Stone was <6 mm and could pass spontaneously, this was discussed with the patient and they are amenable to trial of stone passage at home. Will give pain control and tamsulosin prescriptions. Hemodynamically stable and afebrile currently. Plan to discharge from the emergency department. Advised to take medications as instructed and drink plenty of fluids. Return precautions discussed with the patient, who understands all instructions and is comfortable with plan of care. Dragon Disclaimer: Drags[place]ita Disclaimer: This electronic medical record was generated, in whole or in part, using a voice recognition dictation system. Departure Departure Impression: Primary Impression: Kidney stone on right side Disposition: 01 HOME / SELF CARE / HOMELESS Condition: IMPROVED Referrals: TERRANCE AGARWAL MD (PCP) Follow up with your UROLOGIST THIS WEEK. Patient Instructions: Kidney Stones Additional Instructions: Thank you for visiting our Emergency Department. We appreciate you trusting us with your care. If any additional problems come up don't hesitate to return to visit us. Please follow up with your primary care provider so they can plan additional care if needed and know about the problem that you had. If symptoms worsen come back to the Emergency Department. Any concerning symptoms that start such as chest pain, shortness of air, weakness or numbness on one side of the body, running high fevers or any other concerning symptoms return to the ER. Scripts Tamsulosin Hcl (FLOMAX) 0.4 Mg Cap.er.24h 1 CAP PO DAILY for 14 Days, #14 CAP 11 Refills Prov: LISA NARANJO DO 08/23/20 Hydrocodone/Acetaminophen (Hydrocodone-Acetamin 5-325 mg) 1 Each Tablet 1 EACH PO Q6HRS PRN for PAIN, #15 TAB Prov: LISA NARANJO DO 08/23/20 Naproxen Sodium (ANAPROX DS) 550 Mg Tablet 1 TAB PO BID for 15 Days, #30 TAB 0 Refills Prov: LISA NARANJO DO 08/23/20 LISA NARANJO DO August 23, 2020 13:54
[2020-08-23] MEDS ORDERED: MORPHINE SULFATE 4 MG/ML VIAL. IV ONE (14:00)
[2020-08-23] MEDS ORDERED: ONDANSETRON PF 4 MG/2 ML VIAL. IVP ONE (14:00)
[2020-08-23 14:06] LABS: BASO # 0.1 x10^3/uL (0.0-0.2); BASO % 1 % (0-3); EOS # 0.1 x10^3/uL (0.0-0.7); EOS % 1 % (0-3); HEMATOCRIT 41.9 % (39.0-53.0); HEMOGLOBIN 14.1 g/dL (13.0-17.5); LYMPH # 1.6 x10^3/uL (1.0-4.8); LYMPH % 17 % (24-48); MEAN CORPUSCULAR HEMOGLOBIN 29 pg (25-35); MEAN CORPUSCULAR HGB CONC 34 g/dL (31-37); MEAN CORPUSCULAR VOLUME 87 fL (79-100); MONO # 0.6 x10^3/uL (0.0-1.1); MONO % 7 % (0-9); NEUT # 6.6 x10^3/uL (1.8-7.7); NEUT % 74 % (31-73); PLATELET COUNT 188 x10^3/uL (140-400); RED BLOOD COUNT 4.82 x10^6/uL (4.30-5.70); RED CELL DISTRIBUTION WIDTH 14.2 % (11.5-14.5); WHITE BLOOD COUNT 8.9 x10^3/uL (4.0-11.0)
[2020-08-23 14:09] LABS: BILIRUBIN,URINE NEGATIVE (NEG); CLARITY,URINE CLEAR; COLOR,URINE YELLOW; NITRITE,URINE NEGATIVE (NEG); PROTEIN,URINE NEGATIVE (NEG-TRACE); UROBILINOGEN,URINE 0.2 mg/dL (0.2 mg/dL)
[2020-08-23 14:17] LABS: CALCIUM 9.3 mg/dL (8.5-10.1); CREATININE 1.3 mg/dL (0.7-1.3); GFR 54.1; POTASSIUM 4.2 mmol/L (3.5-5.1)
[2020-08-23 14:25] LABS: ALBUMIN/GLOBULIN RATIO 1.3 (1.0-1.7); MAGNESIUM 1.7 mg/dL (1.8-2.4); TOTAL BILIRUBIN 0.4 mg/dL (0.2-1.0)
[2020-08-23 14:35] LABS: HYALINE CASTS, URINE MODERATE /HPF; RBC,URINE >40 /HPF (0-2)
[2020-08-23 14:38] LABS: BACTERIA,URINE FEW /HPF (0-FEW)
[2020-08-23] MEDS ORDERED: KETOROLAC 30 MG/ML VIAL. ONE (14:47)
--- NOTE | 2020-08-23 14:56 | RAD ---
CT STUDY OF THE ABDOMEN AND PELVIS WITHOUT CONTRAST CLINICAL INDICATIONS: Right-sided flank pain. History of renal stones. TECHNIQUE: Noncontrast helical CT scanning of the abdomen and pelvis was performed. Without contrast, the sensitivity to detect organ pathology and GI tract pathology is decreased. PQRS compliance Statement One or more of the following individualized dose reduction techniques were utilized for this study: 1. Automated exposure control 2. Adjustment of the mA and/or kV according to patient size 3. Use of iterative reconstruction technique COMPARISON: September 18, 2016. FINDINGS: The liver and spleen and pancreas are unremarkable on this noncontrast study. The gallbladd er is normal. No extrahepatic biliary ductal dilatation is seen. No adrenal mass is evident. Anterior mid aspect left renal cyst is seen measuring 14 Hounsfield units and measuring 2 cm in size. This is an incidental finding and no further follow-up is needed. This cyst measured 1.5 cm previously. Bila teral renal stones are seen. There is moderate right-sided hydronephrosis and hydroureter down to the level of the right acetabulum. Obstruction is due to a 5 mm stone located 4 cm proximal to the UVJ. The urinary bladder is not distended. Prostate gland is enlarged measuring 6.4 cm transversely and do es indent the floor of the urinary bladder. No focal aneurysmal dilatation of the abdominal aorta is seen. No enlarged abdominal or pelvic lymphadenopathy is seen. Colonic diverticulosis is seen without diverticulitis. Terminal ileum is unremarkable. Postsurgical changes related to an appendectomy are evident. No obstructive bowel pattern is seen. No free air or free fluid or mesenteric edema is seen. No lung base consolidation is evident. No lytic process is seen. IMPRESSION: Moderate right-sided hydronephrosis and hydroureter due to a distal right ureteral stone measuring 5 mm in size located 4 cm proximal to the UVJ. Multiple bilateral renal stones are evident. Enlargement of the prostate gland. Colonic diverticulosis without diverticulitis. Electronically signed by: Zana Rowan MD (08/23/2020 2:54 PM) [id number]
[2020-08-23] MEDS ORDERED: KETOROLAC 30 MG/ML VIAL. IVP ONE (15:00)
[2020-08-23] MEDS ORDERED: IV NORMAL SALINE 1000ML BAG 1,000 ML IV ONE (15:00)
[2020-08-23] MEDS ORDERED: TAMS0.4C97 PO (16:12)
[2020-08-23] MEDS ORDERED: NAPR-682 PO (16:12)
[2020-08-23] MEDS ORDERED: HYDR-2759 PO (16:12)
[2020-08-23] MEDS ORDERED: MAGNESIUM SULFATE 1GM 100 ML IV ONE (16:30)
[2020-08-23 16:45] VITALS: BP 124/60
== END 2020-08-23 16:56 | disposition home or self-care (01) ==
LOC: ER 13:03
DX: N20.0 Calculus of kidney (principal); J44.9 Chronic obstructive pulmonary disease, unspecified; E78.00 Pure hypercholesterolemia, unspecified; I10 Essential (primary) hypertension; E03.9 Hypothyroidism, unspecified; Z87.891 Personal history of nicotine dependence; Z88.0 Allergy status to penicillin; Z88.5 Allergy status to narcotic agent
CPT/HCPCS: 36415; 74176; 80053; 81001; 83690; 83735; 85025; 96361; 96365; 96375; 99285; J1885; J2270; J2405; J3475; J7030